=== PATIENT | male | born 1980 | race Caucasian/White ===

== ENCOUNTER 2021-09-02 15:47 | Emergency (ER) | payer SELFPAY ==
--- NOTE | 2021-09-02 16:11 | ER ---
Nurse's Notes [facility] Name: Osmani Ahmadi Age: 41 yrs Sex: Male : 1980 Arrival Date: 09/02/2021 Time: 15:49 Bed 18 Private MD: Diagnosis: Oral Abscess Presentation: 09/02 15:55 Chief complaint: Patient states: " I think I have an abscess in my mouth." Swelling ph noted to R side roof of mouth, poor dentition noted, pt denies fever N/V. Coronavirus screen: Vaccine status: Patient reports being unvaccinated. Ebola Screen: No symptoms or risks identified at this time. Initial Sepsis Screen: Does the patient meet any 2 criteria? No. Patient's initial sepsis screen is negative. Does the patient have a suspected source of infection? No. Patient's initial sepsis screen is negative. Risk Assessment: Do you want to hurt yourself or someone else? Patient reports no desire to harm self or others. Onset of symptoms was September 02, 2021. 15:55 Method Of Arrival: Ambulatory ph 15:55 Acuity: DILLON 4 ph Historical: - Allergies: 15:59 No Known Allergies; ph - PMHx: 15:59 None; ph - Immunization history:: Client reports having NOT received the Covid vaccine. - Social history:: Smoking status: Patient reports the use of cigarette tobacco products, smokes one-half pack cigarettes per day. Screenin:59 Abuse screen: Denies threats or abuse. Denies injuries from another. Nutritional jg9 screening: No deficits noted. Tuberculosis screening: No symptoms or risk factors identified. Fall Risk None identified. Assessment: 15:58 General: Appears uncomfortable, Behavior is calm. Pain: Complains of pain in mouth-r jg9 top palate region Pain currently is 10 out of 10 on a pain scale. Pain began 1 day ago. Vital Signs: 15:55 BP 128 / 94; Pulse 78; Resp 18; Temp 99.1(TE); Pulse Ox 100% on R/A; Weight 70.31 kg; ph Height 5 ft. 9 in. (175.26 cm); 16:00 BP 135 / 78; Pulse 78; Resp 13 S; Pulse Ox 98% on R/A; jg9 16:41 BP 134 / 81; Pulse 76; Resp 12 S; Pulse Ox 94% on R/A; jg9 15:55 Body Mass Index 22.89 (70.31 kg, 175.26 cm) ED Course: 15:49 Patient arrived in ED. rg4 15:51 Rodríguez Polk PA is PHCP. haile 15:51 Eliu Rankin DO is Attending Physician. [facility] 15:54 Dahlia Kendrick, RN is Primary Nurse. jg9 15:58 Triage completed. ph 15:58 Arm band placed on Patient placed in an exam room. ph 16:00 abscess drainage. jg9 16:42 Patient has correct armband on for positive identification. Bed in low position. Call jg9 light in reach. 16:43 Patient did not have IV access during this emergency room visit. jg9 Administered Medications: 16:35 Drug: Clindamycin 600 mg Route: IM; Site: right ventrogluteal; jg9 16:45 Follow up: Response: No adverse reaction; Medication administered at discharge. jg9 Outcome: 16:10 Discharge ordered by . [facility] 16:43 Discharged to home ambulatory. jg9 16:43 Condition: good 16:43 Discharge instructions given to patient, Instructed on discharge instructions, follow up and referral plans. Demonstrated understanding of instructions, follow-up care. 16:44 Patient left the ED. jg9 Signatures: Rodríguez Polk PA PA jmm Hall, Patricia, RN RN Yolanda Muro 4 Dahlia Kendrick, GORDO RN jg9
--- NOTE | 2021-09-02 16:11 | EDPHYS ---
Physician Documentation [facility] Name: Osmani Ahmadi Age: 41 yrs Sex: Male : 1980 Arrival Date: 09/02/2021 Time: 15:49 Bed 18 Private MD: ED Physician Eliu Rankin HPI: 09/02 16:08 This 41 yrs old Male presents to ER via Ambulatory with complaints of Abscess. jmm 16:08 the patient presents with a swollen area of the hard palate. Onset: The [facility] symptoms/episode began/occurred gradually, 2 day(s) ago. Possible cause(s): unknown. Associated signs and symptoms: Pertinent positives: erythema, swelling. Modifying factors: the symptoms are alleviated by nothing, the symptoms are aggravated by nothing. This is a 41-year-old male with no chronic medical conditions presents emerged department with complaints of swelling to his hard palate beginning approximately day and a half ago. Patient denies fever or chills. Denies similar symptoms in the past.. Historical: - Allergies: 15:59 No Known Allergies; ph - PMHx: 15:59 None; ph - Immunization history:: Client reports having NOT received the Covid vaccine. - Social history:: Smoking status: Patient reports the use of cigarette tobacco products, smokes one-half pack cigarettes per day. ROS: 16:08 Constitutional: Negative for fever, chills, and weight loss. jmm 16:08 Cardiovascular: Negative for chest pain, palpitations, and edema, Respiratory: Negative for shortness of breath, cough, wheezing, and pleuritic chest pain. 16:08 ENT: Positive for Gum pain 16:08 Neuro: Negative for altered mental status. 16:08 All other systems are negative. Exam: 16:08 Constitutional: This is a well developed, well nourished patient who is awake, alert, jmm and in no acute distress. Head/Face: atraumatic. Eyes: EOMI, no conjunctival erythema appreciated 16:08 Neck: Trachea midline, Supple Chest/axilla: Normal chest wall appearance and motion. Cardiovascular: Regular rate and rhythm. No edema appreciated Respiratory: Normal respirations, no respiratory distress appreciated Abdomen/GI: Non distended, soft Back: Normal ROM Skin: General appearance color normal MS/ Extremity: Moves all extremities, no obvious deformities appreciated, no edema noted to the lower extremities Neuro: Awake and alert Psych: Behavior is normal, Mood is normal, Patient is cooperative and pleasant 16:08 ENT: Swelling noted to the upper hard palate, fluctuance appreciated on examination. Vital Signs: 15:55 BP 128 / 94; Pulse 78; Resp 18; Temp 99.1(TE); Pulse Ox 100% on R/A; Weight 70.31 kg; ph Height 5 ft. 9 in. (175.26 cm); 16:00 BP 135 / 78; Pulse 78; Resp 13 S; Pulse Ox 98% on R/A; jg9 16:41 BP 134 / 81; Pulse 76; Resp 12 S; Pulse Ox 94% on R/A; jg9 15:55 Body Mass Index 22.89 (70.31 kg, 175.26 cm) ph Procedures: 16:31 Performed 1% lidocaine injected into the hard palate. 1.5mL of purulent drainage jm expressed using an 18-gauge needle. MDM: 16:08 Patient medically screened. [facility] 16:09 Data reviewed: vital signs, nurses notes. Counseling: I had a detailed discussion with haile the patient and/or guardian regarding: the historical points, exam findings, and any diagnostic results supporting the discharge/admit diagnosis, the need for outpatient follow up, to return to the emergency department if symptoms worsen or persist or if there are any questions or concerns that arise at home. Administered Medications: 16:35 Drug: Clindamycin 600 mg Route: IM; Site: right ventrogluteal; j9 16:45 Follow up: Response: No adverse reaction; Medication administered at discharge. jg9 Disposition: 21:29 Co-signature as Attending Physician, Eliu Rankin DO I agree with the assessment and ms3 plan of care. Disposition Summary: 09/02/21 16:10 Discharge Ordered Location: Home [facility] Condition: Stable [facility] Diagnosis - Oral Abscess [facility] Followup: [facility] - With: Private Physician - When: 2 - 3 days - Reason: Recheck today's complaints, Continuance of care, Re-evaluation by your physician Discharge Instructions: - Discharge Summary Sheet [facility] - Dental Abscess [facility] Forms: - Medication Reconciliation Form [facility] - Thank You Letter [facility] - Antibiotic Education [facility] - Prescription Opioid Use [facility] Prescriptions: - penicillin V potassium 500 mg Oral tablet - take 1 tablet by ORAL route 4 times per day for 10 days; 40 tablet; Refills: 0, jmm Product Selection Permitted Signatures: Rodríguez Polk PA PA jmm Hall, Patricia RN RN ph Eliu Rankin DO DO ms3 Dahlia Kendrick RN RN jg9
[2021-09-02] MEDS ORDERED: CLINDAMYCIN IV 150 MG/ML (4 mL) VIAL ONE (16:31)
[2021-09-02 16:58] VITALS: TEMP 99.1
[2021-09-02 17:00] VITALS: BP 134/81; O2SAT 94
== END 2021-09-02 16:44 | disposition home or self-care (01) ==
LOC: ER 15:47
DX: K04.7 Periapical abscess without sinus (principal); F17.210 Nicotine dependence, cigarettes, uncomplicated
CPT/HCPCS: 96372; 99283; S0077